=== PATIENT | female | born 1985 | race Caucasian/White ===

== ENCOUNTER 2023-12-16 13:58 | Outpatient (CLI) | payer BC | END 2023-12-16 14:59 | disposition home or self-care (01) | LOC: NST 13:58 | PROVIDERS: ATTEND Obstetrics & Gynecology Maternal & Fetal Medicine | DX: Z34.82 Encounter for supervision of other normal pregnancy, second trimester (principal) ==

== ENCOUNTER 2024-01-06 14:23 | Outpatient (CLI) | payer BC ==
[2024-01-06 14:42] VITALS: BP 122/84
== END 2024-01-06 15:48 | disposition home or self-care (01) ==
LOC: NST 14:23
PROVIDERS: ATTEND Obstetrics & Gynecology Maternal & Fetal Medicine
DX: Z34.83 Encounter for supervision of other normal pregnancy, third trimester (principal)

== ENCOUNTER 2024-01-16 05:34 | Inpatient (IN) | payer BC ==
[~2024-01-16] VITALS: Ht 167.6 cm; Wt 94.3 kg
[2024-01-16] VITALS (7 sets, daily range): BP systolic 117–127; BP diastolic 73–86; O2SAT 99
[2024-01-16] MEDS ORDERED: OMEPRAZOLE40 MG PO (05:37)
[2024-01-16] MEDS ORDERED: URSO250 MG PO (05:37)
[2024-01-16] MEDS ORDERED: ST. JOSEPH ASPI81 M2 PO (05:38)
[2024-01-16] MEDS ORDERED: PRENATAL TABLE1 EAC4 PO (05:39)
[2024-01-16] MEDS ORDERED: RINGERS SOLUTION,LACTATED 1,000 ML IV SCH (05:45)
[2024-01-16] MEDS ORDERED: BETAMETHASONE ACETATE,SOD PHOS 30 MG/5 ML ML ONE (11:39)
[2024-01-16] MEDS ORDERED: AZITHROMYCIN 500 MG TABLET PO SCH (12:00)
[2024-01-16] MEDS ORDERED: BETAMETHASONE ACETATE,SOD PHOS 30 MG/5 ML ML IM ONE ×2 (12:00)
[2024-01-16] MEDS ORDERED: NIFEDIPINE 30 MG TAB.SA.OSM PO STA (12:06)
[2024-01-16 14:08] LABS: MEAN CELL VOLUME 92.5 fL (80.00-100.00)
[2024-01-16 14:15] LABS: HEMATOCRIT 35.7 % (36.0-45.00); HEMOGLOBIN 12.4 g/dL (12.0-15.00); MEAN CORPUSCULAR HEMOGLOBIN 32.1 pg (27.00-32.0); MEAN CORPUSCULAR HGB CONC 34.7 g/dl (32.0-36.0); PLATELET COUNT 309 K/uL (150-450); RED BLOOD COUNT 3.86 M/uL (4.00-6.00); RED CELL DISTRIBUTION WIDTH 12.8 % (11.5-14.5)
[2024-01-16 14:28] LABS: ALBUMIN 2.2 gm/dL (3.4-5.0); BILIRUBIN TOTAL 0.4 mg/dL (0.3-1.2); CALCIUM 8.3 mg/dL (8.5-10.1); CREATININE SERUM 0.61 mg/dL (0.55-1.02); GFR 108.63; GLOBULINA 4.2 G/DL (2.4-3.5); POTASSIUM 4.04 mEq/L (3.5-5.1); TOTAL PROTEIN 6.4 gm/dL (6.4-8.2); URINE APPEARANCE Clear; URINE BILIRRUBIN Negative (NEGATIVE); URINE BLOOD Negative; URINE COLOR Yellow; URINE GLUCOSE Negative (NEGATIVE); URINE KETONE Negative (NEGATIVE); URINE LEUKOCYTE Small; URINE NITRATE Negative; URINE PROTEIN Negative (NEGATIVE); URINE UROBILINOGEN 0.2 E.U./dl
[2024-01-16] MEDS ORDERED: OMEPRAZOL PO SCH (14:30)
[2024-01-16 14:32] LABS: URINE BACTERIA 1409.6 uL (0.0-1933); URINE EPITHELIAL CELLS 27.6 uL (0.0-38.8); URINE RBC 4.4 uL (0.0-20.8); URINE WBC 11.4 uL (0.0-23.2)
[2024-01-16] MEDS ORDERED: AZITHROMYCIN 500 MG TABLET PO NR (15:30)
[2024-01-16] MEDS ORDERED: URSODIOL 300 MG CAPSULE PO SCH (17:00)
[2024-01-16] MEDS ORDERED: NIFEDIPINE 30 MG TAB.SA.OSM PO SCH (21:00)
[2024-01-16] MEDS ORDERED: ACETAMINOPHEN 325 MG TABLET PO PRN (21:15)
[2024-01-17 03:17] VITALS: BP 113/71
[2024-01-17 07:10] VITALS: BP 110/73
[2024-01-17] MEDS ORDERED: PATIENTS OWN MEDICATION (MEDICAMENTO EN PISO) PO SCH (09:00)
[2024-01-17 11:15] VITALS: BP 114/72
[2024-01-17] MEDS ORDERED: BETAMETHASONE ACETATE,SOD PHOS 30 MG/5 ML ML IM ONE (11:50)
[2024-01-17 15:19] VITALS: BP 113/76
[2024-01-17 18:51] VITALS: BP 118/69
[2024-01-17 23:10] VITALS: BP 110/70
[2024-01-18 03:12] VITALS: BP 98/60
[2024-01-18 06:07] VITALS: BP 119/68; O2SAT 18
[2024-01-18 11:00] VITALS: BP 112/76; O2SAT 99
== END 2024-01-18 12:02 | disposition home or self-care (01) | DRG 831 ==
LOC: OBS/DEL 05:34 → LDR 11:36
PROVIDERS: ADMIT Obstetrics & Gynecology; ATTEND Obstetrics & Gynecology
PROC: BY4GZZZ Ultrasonography of Third Trimester, Multiple Gestation (ICD-10-PCS; principal; 2024-01-16)
PROC: 4A1HXCZ Monitoring of Products of Conception, Cardiac Rate, External Approach (ICD-10-PCS; 2024-01-16)
PROC: BY4GZZZ Ultrasonography of Third Trimester, Multiple Gestation (ICD-10-PCS; 2024-01-18)
PROC: BU4CZZZ Ultrasonography of Uterus and Ovaries (ICD-10-PCS; 2024-01-18)
DX: O42.013 Preterm premature rupture of membranes, onset of labor within 24 hours of rupture, third trimester (principal); O60.03 Preterm labor without delivery, third trimester; O36.8132 Decreased fetal movements, third trimester, fetus 2; Z3A.31 31 weeks gestation of pregnancy; Z20.822 Contact with and (suspected) exposure to COVID-19; O26.843 Uterine size-date discrepancy, third trimester; O30.043 Twin pregnancy, dichorionic/diamniotic, third trimester

== ENCOUNTER 2024-01-25 12:55 | Outpatient (CLI) | payer BC ==
[~2024-01-25 12:55] MED LIST: OMEPRAZOLE40 MG PO; PRENATAL TABLE1 EAC4 PO; ST. JOSEPH ASPI81 M2 PO; URSO250 MG PO
== END 2024-01-25 13:31 | disposition home or self-care (01) ==
LOC: NST 12:55
PROVIDERS: ATTEND Obstetrics & Gynecology
DX: Z34.83 Encounter for supervision of other normal pregnancy, third trimester (principal)

== ENCOUNTER → 2024-02-01 | Outpatient (CLI) | payer BC | END | disposition home or self-care (01) | LOC: NST 09:29 | PROVIDERS: ATTEND Obstetrics & Gynecology | DX: Z34.80 Encounter for supervision of other normal pregnancy, unspecified trimester (principal) ==

== ENCOUNTER 2024-02-02 21:06 | Outpatient (CLI) | payer BC ==
[~2024-02-02] VITALS: Ht 167.6 cm; Wt 95.3 kg
[2024-02-02 20:01] VITALS: BP 126/84; BP 128/84; O2SAT 99
[2024-02-02] MEDS ORDERED: LOPERAMIDE HCL 2 MG CAPSULE PO ONE (21:45)
[2024-02-02] MEDS ORDERED: RINGERS SOLUTION,LACTATED 1,000 ML IV SCH (21:45)
[2024-02-02 23:33] VITALS: BP 110/74
[2024-02-03 03:10] VITALS: BP 124/85
[2024-02-03 07:50] VITALS: BP 122/79
[2024-02-03 10:00] VITALS: BP 122/79
== END 2024-02-03 10:05 | disposition home or self-care (01) ==
LOC: OBS/DEL 21:06
PROVIDERS: ATTEND Obstetrics & Gynecology
DX: O26.893 Other specified pregnancy related conditions, third trimester (principal); R19.7 Diarrhea, unspecified; R11.0 Nausea

== ENCOUNTER 2024-02-17 06:41 | Inpatient (IN) | payer BC ==
[~2024-02-17] VITALS: Ht 167.6 cm; Wt 98.0 kg
[2024-02-17] VITALS (11 sets, daily range): BP systolic 130–169; BP diastolic 73–100
[2024-02-17] MEDS ORDERED: OXYTOCIN 500 ML IV ONE (07:30)
[2024-02-17] MEDS ORDERED: RINGERS SOLUTION,LACTATED 1,000 ML IV SCH (08:00)
[2024-02-17] MEDS ORDERED: OMEGA-31000 MG PO (08:20)
[2024-02-17 08:42] LABS: HEMATOCRIT 35.5 % (36.0-45.00); HEMOGLOBIN 12.1 g/dL (12.0-15.00); MEAN CELL VOLUME 88.7 fL (80.00-100.00); MEAN CORPUSCULAR HEMOGLOBIN 30.3 pg (27.00-32.0); MEAN CORPUSCULAR HGB CONC 34.1 g/dl (32.0-36.0); PLATELET COUNT 242 K/uL (150-450); RED CELL DISTRIBUTION WIDTH 14.1 % (11.5-14.5)
[2024-02-17] MEDS ORDERED: CLINDAMYCIN PHOSPHATE 150 MG/ML (600mg) IV SCH (09:00)
[2024-02-17 09:13] LABS: INR < 0.93; PROTHROMBIN TIME 9.7 SECONDS (9.0-11.5)
[2024-02-17 09:57] LABS: ALBUMIN 2.1 gm/dL (3.4-5.0); BILIRUBIN TOTAL 0.43 mg/dL (0.3-1.2); CALCIUM 8.5 mg/dL (8.5-10.1); CREATININE SERUM 0.9 mg/dL (0.55-1.02); GFR 69.35; GLOBULINA 3.9 G/DL (2.4-3.5); POTASSIUM 4.35 mEq/L (3.5-5.1)
[2024-02-17] MEDS ORDERED: CARBOPROST TROMETHAMINE 250 MCG/ML AMPUL IM STA (17:13)
[2024-02-17] MEDS ORDERED: IBUprofen 400 MG TABLET PO PRN (17:15)
[2024-02-17] MEDS ORDERED: OXYTOCIN 1,000 ML IV SCH (17:15)
[2024-02-17] MEDS ORDERED: CHLORHEXIDINE GLUCONATE 120 ML BOTTLE TOP ONE (17:15)
[2024-02-17 17:56] LABS: HEMATOCRIT 32.7 % (36.0-45.00); HEMOGLOBIN 11.1 g/dL (12.0-15.00); MEAN CELL VOLUME 90.8 fL (80.00-100.00); MEAN CORPUSCULAR HEMOGLOBIN 30.9 pg (27.00-32.0); MEAN CORPUSCULAR HGB CONC 34.1 g/dl (32.0-36.0); PLATELET COUNT 268 K/uL (150-450); RED CELL DISTRIBUTION WIDTH 13.8 % (11.5-14.5)
[2024-02-17] MEDS ORDERED: KETOROLAC TROMETHAMINE 30 MG VIAL IV SCH (18:51)
[2024-02-17] MEDS ORDERED: ERYTHROMYCIN BASE OPHT 1GM EACH TUBE OP ONE ×2 (19:15)
[2024-02-17] MEDS ORDERED: CARBOPROST TROMETHAMINE 250 MCG/ML AMPUL IM ONE ×2 (19:15)
[2024-02-17] MEDS ORDERED: METHYLERGONOVINE MALEATE 0.2 MG/ML AMPUL IM ONE (19:15)
[2024-02-17] MEDS ORDERED: OXYTOCIN 2,000 ML IV ONE (19:15)
[2024-02-17 21:06] LABS: HEMOGLOBIN 10.4 g/dL (12.0-15.00); MEAN CELL VOLUME 90.6 fL (80.00-100.00); MEAN CORPUSCULAR HEMOGLOBIN 30.4 pg (27.00-32.0); MEAN CORPUSCULAR HGB CONC 33.5 g/dl (32.0-36.0); PLATELET COUNT 295 K/uL (150-450); RED BLOOD COUNT 3.42 M/uL (4.00-6.00); RED CELL DISTRIBUTION WIDTH 13.9 % (11.5-14.5)
[2024-02-17 23:43] LABS: HEMATOCRIT 30.6 % (36.0-45.00); HEMOGLOBIN 10.2 g/dL (12.0-15.00); MEAN CELL VOLUME 89.8 fL (80.00-100.00); MEAN CORPUSCULAR HGB CONC 33.4 g/dl (32.0-36.0); PLATELET COUNT 265 K/uL (150-450); RED CELL DISTRIBUTION WIDTH 14.2 % (11.5-14.5)
[2024-02-17 23:54] LABS: FIBRINOGEN 443 mg/dL (187.0-446.0); INR < 0.93; PARTIAL THROMBOPLASTIN TIME 25.5 SECONDS (22.0-34.0); PROTHROMBIN TIME 9.8 SECONDS (9.0-11.5)
[2024-02-17 23:58] LABS: ALBUMIN 1.8 gm/dL (3.4-5.0); BILIRUBIN TOTAL 0.5 mg/dL (0.3-1.2); CREATININE SERUM 1.21 mg/dL (0.55-1.02); GFR 49.28; GLOBULINA 3.3 G/DL (2.4-3.5); POTASSIUM 4.89 mEq/L (3.5-5.1); TOTAL PROTEIN 5.1 gm/dL (6.4-8.2)
[2024-02-18 07:08] LABS: MEAN CELL VOLUME 90.4 fL (80.00-100.00); MEAN CORPUSCULAR HGB CONC 33.7 g/dl (32.0-36.0); PLATELET COUNT 197 K/uL (150-450); RED BLOOD COUNT 2.36 M/uL (4.00-6.00)
[2024-02-18 07:26] LABS: HEMATOCRIT 21.3 % (36.0-45.00); HEMOGLOBIN 7.2 g/dL (12.0-15.00); MEAN CORPUSCULAR HEMOGLOBIN 30.5 pg (27.00-32.0)
[2024-02-18 08:13] LABS: MEAN CELL VOLUME 89.7 fL (80.00-100.00); MEAN CORPUSCULAR HGB CONC 33.3 g/dl (32.0-36.0); PLATELET COUNT 206 K/uL (150-450); RED BLOOD COUNT 2.54 M/uL (4.00-6.00); RED CELL DISTRIBUTION WIDTH 14.1 % (11.5-14.5)
[2024-02-18 08:15] LABS: HEMATOCRIT 22.8 % (36.0-45.00); HEMOGLOBIN 7.6 g/dL (12.0-15.00); MEAN CORPUSCULAR HEMOGLOBIN 29.9 pg (27.00-32.0)
[2024-02-18] MEDS ORDERED: GABAPENTIN 300 MG CAPSULE PO SCH (13:00)
[2024-02-18] MEDS ORDERED: SOD FERRIC GLUC COMPLX/SUCROSE 125 MG in 0.9 % SODIUM CHLORIDE 100 ML IV SCH (13:47)
[2024-02-18 19:20] VITALS: BP 127/79
[2024-02-18 23:46] VITALS: BP 138/72; O2SAT 98
[2024-02-19 00:41] LABS: HEMATOCRIT 26.3 % (36.0-45.00); MEAN CORPUSCULAR HGB CONC 34.8 g/dl (32.0-36.0); PLATELET COUNT 191 K/uL (150-450); RED BLOOD COUNT 2.99 M/uL (4.00-6.00); RED CELL DISTRIBUTION WIDTH 14.4 % (11.5-14.5)
[2024-02-19 00:44] LABS: HEMOGLOBIN 9.1 g/dL (12.0-15.00); MEAN CORPUSCULAR HEMOGLOBIN 30.4 pg (27.00-32.0)
[2024-02-19 00:55] LABS: ALBUMIN 1.7 gm/dL (3.4-5.0); BILIRUBIN TOTAL 0.3 mg/dL (0.3-1.2); CALCIUM 8.5 mg/dL (8.5-10.1); CREATININE SERUM 1.03 mg/dL (0.55-1.02); GFR 59.05; GLOBULINA 3.1 G/DL (2.4-3.5); POTASSIUM 4.28 mEq/L (3.5-5.1); TOTAL PROTEIN 4.8 gm/dL (6.4-8.2)
[2024-02-19 03:57] VITALS: BP 138/77
[2024-02-19 07:03] VITALS: BP 136/80
[2024-02-19] MEDS ORDERED: MAGNESIUM SULFATE IN WATER 500 ML IV SCH (08:45)
[2024-02-19 12:11] VITALS: BP 132/85
[2024-02-19 16:00] VITALS: BP 145/88
[2024-02-19 20:00] VITALS: BP 135/85
[2024-02-20 02:34] VITALS: BP 140/90
[2024-02-20 08:00] VITALS: BP 148/80
[2024-02-20] MEDS ORDERED: RINGERS SOLUTION,LACTATED 1,000 ML IV SCH (11:00)
[2024-02-20] MEDS ORDERED: LABETALOL HCL 200 MG TABLET PO NR (11:00)
[2024-02-20 11:51] LABS: HEMATOCRIT 29.2 % (36.0-45.00); HEMOGLOBIN 9.9 g/dL (12.0-15.00); MEAN CELL VOLUME 88.5 fL (80.00-100.00); MEAN CORPUSCULAR HEMOGLOBIN 29.9 pg (27.00-32.0); MEAN CORPUSCULAR HGB CONC 33.8 g/dl (32.0-36.0); PLATELET COUNT 254 K/uL (150-450); RED CELL DISTRIBUTION WIDTH 14.2 % (11.5-14.5)
[2024-02-20] MEDS ORDERED: MULTIVIT INFUSN,ADULT 4,VIT K 10 ML VIAL IV SCH (12:00)
[2024-02-20] MEDS ORDERED: LABETALOL HCL 200 MG TABLET PO SCH (17:00)
== END 2024-02-20 16:00 | DRG 768 ==
LOC: OB/GYN 06:41 → LDR 06:41 → OB/GYN 16:00 → O/R 02-18 06:27 → LDR 02-18 20:20 → OB/GYN 02-19 09:41
PROVIDERS: Obstetrics & Gynecology; ADMIT Obstetrics & Gynecology; ATTEND Obstetrics & Gynecology
PROC: 0UQC7ZZ Repair Cervix, Via Natural or Artificial Opening (ICD-10-PCS; 2024-02-17)
PROC: 10E0XZZ Delivery of Products of Conception, External Approach (ICD-10-PCS; 2024-02-17)
PROC: 0HQ9XZZ Repair Perineum Skin, External Approach (ICD-10-PCS; 2024-02-17)
PROC: 0U7 Female Reproductive System, Dilation (ICD-10-PCS; 2024-02-17)
PROC: 4A1HXCZ Monitoring of Products of Conception, Cardiac Rate, External Approach (ICD-10-PCS; 2024-02-17)
PROC: 10D17Z9 Manual Extraction of Products of Conception, Retained, Via Natural or Artificial Opening (ICD-10-PCS; principal; 2024-02-17 18:45)
PROC: 30233N1 Transfusion of Nonautologous Red Blood Cells into Peripheral Vein, Percutaneous Approach (ICD-10-PCS; 2024-02-18)
DX: O72.1 Other immediate postpartum hemorrhage (principal); Z37.2 Twins, both liveborn; O60.14X2 Preterm labor third trimester with preterm delivery third trimester, fetus 2; O71.3 Obstetric laceration of cervix; D62 Acute posthemorrhagic anemia; O70.0 First degree perineal laceration during delivery; O99.02 Anemia complicating childbirth; O30.043 Twin pregnancy, dichorionic/diamniotic, third trimester; Z3A.36 36 weeks gestation of pregnancy; Z20.822 Contact with and (suspected) exposure to COVID-19